=== PATIENT | male | born 1955 | race Caucasian/White ===

== ENCOUNTER 2020-11-21 14:57 | Observation (INO) ==
--- NOTE | 2020-11-21 15:17 | Emergency Department Note ---
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 Patient states that he has some left-sided pain that radiated to his left arm described it is achy in nature. It has improved compared to prior. The patient did have significant nausea was given Zofran but nothing else in route. The patient does have a known history of A. fib and is on anticoagulant medication does follow with Dr. Lamar. The patient denies any fevers or chills. Patient denies any shortness of breath. Patient denies any lower extremity swelling history of blood clots. Patient denies any recent prolonged car or plane travel surgery or procedure. ROS: See HPI for pertinent positives and negatives. A total of 10 systems were re viewed and otherwise negative. Past medical history: See below Surgical history: See below Social history: See below Physical Exam: GENERAL: Wearing a mask and glasses. NAD, non-toxic. EYE EXAM: Normal conjunctiva. PERRL, no anisocoria and EOM's grossly intact w/o pain. NECK: Supple, no nuchal rigidity, no adenopathy, non-tender. No signs of meningismus. LUNGS: Clear to auscultation. Normal chest wall mechanics. Chest: No reproducible chest wall pain. HEART: Irregularly irregular, no MRG. ABDOMEN: Abdomen soft, non-tender, normo-active bowel sounds, no masses, no rebound or guarding. BACK: No CVA TTP. SKIN: No rashes and no bruising. UPPER EXTREMITIES: Upper extremities are grossly normal. LOWER EXTREMITIES: Grossly normal, no edema. NEURO EXAM: A&O x3, cranial nerves II-XII grossly intact, normal speech, moves all 4 extremities on command w/o issue. Differential diagnoses: Cardiac ischemia, aortic dissection, pulmonary embolism, pneumothorax, pneumonia, pericarditis, myocarditis, esophageal rupture, GERD, cholecystitis, pancreatitis, musculoskeletal, as well as other pathologies. Course: Patient was seen and evaluated the bedside. Full history physical exam was performed. EKG interpreted by me Coretta españa, rate of 78, normal QRS, normal axis, no obvious ST changes. Imaging Studies: See below Cardiac monitoring: An order was placed for continuous cardiac monitoring. The monitor shows a rate of 81 with sinus rhythm. 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 The patient did receive aspirin and Zofran in route. The patient did have improvement in symptoms. Patient is a heart score greater than 3 and has moderate risk. After further discussion with the patient the patient is amenable to observation. Patient's EKG does not show any acute obvious ischemic changes and the patient's initial troponin is negative. I did speak the on-call hospitalist Jahaira Thurman and the patient was admitted by Dr. Galicia. Past Med/Surg History Medical History Anemia Atrial fibrillation xarelto and digoxin---follows with Dr. Biggs BPH (benign prostatic hyperplasia) Coronary artery disease Diabetes mellitus, type 2 Hyperlipidemia Hypertension Morbid obesity with BMI of 50.0-59.9, adult On anticoagulant therapy xarelto daily Osteoarthritis Stroke 2010--"minor" no deficits, no neurologist Surgical History [place] [facility] History of colonoscopy History of esophagogastroduodenoscopy (EGD) History of orchiectomy, unilateral left History of shoulder surgery left, removal of benign mass History of tooth extraction Family History (Updated 11/21/20 @ 18:57 by Eliana Thurman PA-C) Aunt Family history of diabetes mellitus Mother , 60s Myocardial infarction Father Myocardial infarction Grandmother (Maternal) Myocardial infarction Brother , age 31 Myocardial infarction Half-brother Other No family history of adverse response to anesthesia Social History Smoking Status: Never smoker Second Hand Exposure: No; Hx Alcohol Use: No Hx Substance Use: No Preferred Language: Slovak Communication Ability: Effective Financial Adviser Required: No Beliefs That Will Affect Care: None Current Living Situation: Spouse Other Information That Helps Us Care for You: No Feels Safe at Home: Yes Safety Concerns: Feels Safe At This Time Assistive Devices: None Allergies Allergies Allergy/AdvReac Type Severity Reaction Status Date / Time ciprofloxacin Allergy Intermediate HIVES Verified 11/21/20 15:59 Sulfa (Sulfonamide Allergy Intermediate HIVES Verified 11/21/20 15:59 Antibiotics) Home Meds Home Medications Medication Instructions Recorded Confirmed One-A-Day Men's 50 Plus 1 tab PO QAM 11/12/18 11/21/20 Tresiba FlexTouch U-200 80 unit SUBCUT BID 11/12/18 11/21/20 Trulicity 1.5 mg SUBCUT WK 11/12/18 11/21/20 aspirin 81 mg PO HS 11/12/18 11/21/20 atenolol 100 mg PO BID 11/12/18 11/21/20 atorvastatin 20 mg PO QAM 11/12/18 11/21/20 bumetanide 1 mg PO QAM 11/12/18 11/21/20 cyanocobalamin (vitamin B-12) 1,000 mcg PO HS 11/12/18 11/21/20 diclofenac sodium 2 g TOPICAL BID PRN 11/12/18 11/21/20 digoxin 125 mcg PO QAM 11/12/18 11/21/20 finasteride 5 mg PO QAM 11/12/18 11/21/20 magnesium oxide 400 mg PO HS 11/12/18 11/21/20 metformin 1,000 mg PO BIDM 11/12/18 11/21/20 nitroglycerin 0.4 mg SUBLINGUAL UD PRN 11/12/18 11/21/20 omeprazole 10 mg PO BID 11/12/18 11/21/20 rivaroxaban 20 mg PO HS 11/12/18 11/21/20 spironolactone 25 mg PO QAM 11/12/18 11/21/20 terazosin 2 mg PO HS 11/12/18 11/21/20 terazosin 5 mg PO HS 11/12/18 11/21/20 duloxetine 60 mg PO DAILY 11/01/20 11/21/20 lisinopril 10 mg PO HS 11/01/20 11/21/20 pregabalin 75 mg PO BID 11/01/20 11/21/20 tramadol 100 mg PO Q6 PRN 11/01/20 11/21/20 albuterol sulfate 2 puff INHALATION QID PRN 11/21/20 11/21/20 coenzyme Q10 [Co Q-10] 100 mg PO DAILY 11/21/20 11/21/20 ferrous gluconate 240 mg PO DAILY 11/21/20 11/21/20 ketoconazole 1 applic TOPICAL BID 11/21/20 11/21/20 loratadine 10 mg PO DAILY 11/21/20 11/21/20 lorazepam 1 mg PO DIRECTED PRN 11/21/20 11/21/20 polyethylene glycol 3350 [Miralax] 17 g PO DAILY 11/21/20 11/21/20 Results & Data (ED) Vital Signs Vital Signs - 24 hr 11/21/20 15:10 11/21/20 15:30 11/21/20 15:31 Temperature 36.7 C Temperature Source Oral Pulse Rate 72 63 72 Pulse Rate from SpO2 Sensor 74 69 Pulse Rhythm Irregular Respiratory Rate 18 21 Blood Pressure 131/61 105/61 Blood Pressure Mean 84 75 Pulse Oximetry 92 93 93 Oxygen Delivery Method Room Air Room Air Sepsis Recent Fever Within 48 Hours No Sepsis New/Unexplained Change in Mental Status No Sepsis Action Taken by Nursing No Action Required 11/21/20 16:01 11/21/20 16:31 11/21/20 17:01 Temperature Temperature Source Pulse Rate 71 66 59 L Pulse Rate from SpO2 Sensor 72 67 61 Pulse Rhythm Respiratory Rate 15 15 20 Blood Pressure 103/56 L 106/53 L 94/67 L Blood Pressure Mean 71 70 76 Pulse Oximetry 95 93 96 Oxygen Delivery Method Sepsis Recent Fever Within 48 Hours Sepsis New/Unexplained Change in Mental Status Sepsis Action Taken by Nursing 11/21/20 17:32 11/21/20 18:01 Temperature Temperature Source Pulse Rate 64 58 L Pulse Rate from SpO2 Sensor 66 55 L Pulse Rhythm Respiratory Rate 17 21 Blood Pressure 127/45 L 116/67 Blood Pressure Mean 72 83 Pulse Oximetry 97 97 Oxygen Delivery Method Sepsis Recent Fever Within 48 Hours Sepsis New/Unexplained Change in Mental Status Sepsis Action Taken by [facility] Medications Current Medication List: was personally reviewed by me Laboratory Data Attestation: I reviewed the patient's lab results. Result diagrams: 11/21/20 14:45 11/21/20 14:45 Lab Results 11/21/20 11/21/20 11/21/20 Range/Units 14:45 14:45 14:45 WBC 9.33 (4.8-10.8) K/uL RBC 4.20 L (4.7-6.1) M/uL Hgb 11.8 L (14.0-18.0) g/dL Hct 36.6 L (42-52) % MCV 87.1 (80-100) fL MCH 28.1 (25-34) pg MCHC 32.2 (32-36) g/dL RDW Std Deviation 44.3 (36.4-46.3) fL RDW Coeff of Denny 13.8 (11.5-14.5) % Plt Count 302 (130-400) K/uL MPV 12.1 H (7.4-10.4) fL Immature Gran % (Auto) 0.1 % Neut % (Auto) 62.9 % Lymph % (Auto) 27.5 % Charles % (Auto) 8.0 % Eos % (Auto) 1.3 % Baso % (Auto) 0.2 % Neut # (Auto) 5.86 (1.4-6.5) K/uL Lymph # (Auto) 2.57 (1.2-3.4) K/uL Charles # (Auto) 0.75 H (0.11-0.59) K/uL Eos # (Auto) 0.12 (0-0.5) K/uL Baso # (Auto) 0.02 (0-0.2) K/uL Immature Gran # (Auto) 0.01 (0.00-0.02) K/uL APTT 31.6 H (21.0-31.0) Seconds PTT Ratio 1.2 D-Dimer (0-500) ug/L FEU Sodium 137 (136-145) mmol/L Potassium 4.3 (3.5-5.1) mmol/L Chloride 103 (98-107) mmol/L Carbon Dioxide 26 (21-32) mmol/L Anion Gap 7.0 (3-11) BUN 21 H (7-18) mg/dl Creatinine 1.67 H (0.6-1.4) mg/dl Est Cr Clr Drug Dosing 71.8 ml/min Est GFR ( Amer) 49.0 ml/min Est GFR (Non-Af Amer) 42.3 ml/min BUN/Creatinine Ratio 12.5 (10-20) Glucose 108 H (70-99) mg/dl Calcium 9.2 (8.5-10.1) mg/dl Total Bilirubin 0.4 (0.2-1) mg/dl AST 19 (15-37) U/L ALT 25 (12-78) U/L Alkaline Phosphatase 100 (45-117) U/L Troponin I < 0.015 (0-0.045) ng/ml NT-Pro-B Natriuret Pep 906 H (0-900) pg/ml Total Protein 7.4 (6.4-8.2) gm/dl Albumin 3.5 (3.4-5.0) gm/dl Globulin 3.9 (2.5-4.0) gm/dl Albumin/Globulin Ratio 0.9 (0.9-2) Lipase 120 (73-393) U/L COVID-19 Eval Order SARS-CoV-2 (PCR) (Negative) 11/21/20 11/21/20 11/21/20 Range/Units 14:45 18:00 18:00 WBC (4.8-10.8) K/uL RBC (4.7-6.1) M/uL Hgb (14.0-18.0) g/dL Hct (42-52) % MCV (80-100) fL MCH (25-34) pg MCHC (32-36) g/dL RDW Std Deviation (36.4-46.3) fL RDW Coeff of Denny (11.5-14.5) % Plt Count (130-400) K/uL MPV (7.4-10.4) fL Immature Gran % (Auto) % Neut % (Auto) % Lymph % (Auto) % Charles % (Auto) % Eos % (Auto) % Baso % (Auto) % Neut # (Auto) (1.4-6.5) K/uL Lymph # (Auto) (1.2-3.4) K/uL Charles # (Auto) (0.11-0.59) K/uL Eos # (Auto) (0-0.5) K/uL Baso # (Auto) (0-0.2) K/uL Immature Gran # (Auto) (0.00-0.02) K/uL APTT (21.0-31.0) Seconds PTT Ratio D-Dimer 380 (0-500) ug/L FEU Sodium (136-145) mmol/L Potassium (3.5-5.1) mmol/L Chloride (98-107) mmol/L Carbon Dioxide (21-32) mmol/L Anion Gap (3-11) BUN (7-18) mg/dl Creatinine (0.6-1.4) mg/dl Est Cr Clr Drug Dosing ml/min Est GFR ( Amer) ml/min Est GFR (Non-Af Amer) ml/min BUN/Creatinine Ratio (10-20) Glucose (70-99) mg/dl Calcium (8.5-10.1) mg/dl Total Bilirubin (0.2-1) mg/dl AST (15-37) U/L ALT (12-78) U/L Alkaline Phosphatase (45-117) U/L Troponin I (0-0.045) ng/ml NT-Pro-B Natriuret Pep (0-900) pg/ml Total Protein (6.4-8.2) gm/dl Albumin (3.4-5.0) gm/dl Globulin (2.5-4.0) gm/dl Albumin/Globulin Ratio (0.9-2) Lipase (73-393) U/L COVID-19 Eval Order Covid19 at [facility] SARS-CoV-2 (PCR) NEGATIVE (Negative) Administered Medications Nitroglycerin (Nitroglycerin Sl 0.4 Mg/Tab Tab) 0.4 mg SL UD PRN PRN Reason: Chest Pain Stop: 12/21/20 18:06 Last Admin: 11/21/20 20:35 Dose: 0.4 mg Documented by: [id number] Discontinued Medications Acetaminophen (Acetaminophen 325 Mg Tab) 650 mg PO NOW STA Stop: 11/21/20 17:35 Last Admin: 11/21/20 17:54 Dose: 650 mg Documented by: [id number] Nitroglycerin (Nitroglycerin Sl 0.4 Mg/Tab Tab) 0.4 mg SL NOW STA Stop: 11/21/20 17:35 Last Admin: 11/21/20 19:42 Dose: Not Given Documented by: [id number] Imaging Data Radiologist's Impression: Chest X-Ray 11/21/20 15:30 XR chest 1V portable HISTORY: Atypical Chest Pain COMPARISON: Chest 09/04/2015. FINDINGS: The cardiac silhouette remains mildly enlarged. No pleural effusions. No pneumothorax. No new focal lung consolidations to suggest pneumonia. No evidence for pulmonary edema. Mild chronic interstitial thickening remains unchanged. IMPRESSION: No significant change compared to the prior study. No acute process. ACT 112: Negative or not required by law. Electronically signed by: José Marshall M.D. 11/21/2020 3:48 PM Discharge Plan Visit Data Chief Complaint: Chest Pain ED Provider: Musa Stone Discharge Problem: Atypical chest pain, Atrial fibrillation Patient Disposition: Admitted As Inpatient Discharge Instructions Interventions: ED Discharge Assessment Last Done: 11/21/20 20:57 Discharge Problem: Atrial fibrillation Qualifiers: Atrial fibrillation type: unspecified Qualified Code(s): I48.91 - Unspecified atrial fibrillation
[2020-11-21 15:37] LABS: Basophils # (auto) 0.02 K/uL (0-0.2); Basophils % (auto) 0.2 %; Eosinophils # (auto) 0.12 K/uL (0-0.5); Eosinophils % (auto) 1.3 %; Hematocrit (blood only) 36.6 % (42-52); Hemoglobin 11.8 g/dL (14.0-18.0); Immature Granulocytes # (auto) 0.01 K/uL (0.00-0.02); Immature Granulocytes % (auto) 0.1 %; Lymphocytes # (auto) 2.57 K/uL (1.2-3.4); Lymphocytes % (auto) 27.5 %; Mean Corpuscular Hemoglobin 28.1 pg (25-34); Mean Corpuscular Hgb Conc 32.2 g/dL (32-36); Mean Corpuscular Volume 87.1 fL (80-100); Mean Platelet Volume 12.1 fL (7.4-10.4); Monocytes # (auto) 0.75 K/uL (0.11-0.59); Neutrophils # (auto) 5.86 K/uL (1.4-6.5); Neutrophils % (auto) 62.9 %; Platelet Count 302 K/uL (130-400); RDW Coefficient of Variation 13.8 % (11.5-14.5); RDW Standard Deviation 44.3 fL (36.4-46.3); White Blood Count 9.33 K/uL (4.8-10.8)
[2020-11-21 15:48] LABS: Alanine Aminotransferase 25 U/L (12-78); Albumin Level 3.5 gm/dl (3.4-5.0); Aspartate Aminotransferase 19 U/L (15-37); BUN Creatinine Ratio 12.5 (10-20); Blood Urea Nitrogen 21 mg/dl (7-18); Calcium 9.2 mg/dl (8.5-10.1); Carbon Dioxide 26 mmol/L (21-32); Chloride 103 mmol/L (98-107); Creatinine Clr Calc Pharmacy 71.8 ml/min; Est GFR (Non-African American) 42.3 ml/min; Glucose 108 mg/dl (70-99); Potassium 4.3 mmol/L (3.5-5.1); Sodium 137 mmol/L (136-145)
--- NOTE | 2020-11-21 15:50 | XRay Report ---
XR chest 1V portable HISTORY: Atypical Chest Pain COMPARISON: Chest 09/04/2015. FINDINGS: The cardiac silhouette remains mildly enlarged. No pleural effusions. No pneumothorax. No n ew focal lung consolidations to suggest pneumonia. No evidence for pulmonary edema. Mild chronic inte rstitial thickening remains unchanged. IMPRESSION: No significant change compared to the prior study. No acute process. ACT 112: Negative or not required by law. Electronically signed by: José Marshall M.D. 11/21/2020 3:48 PM
[2020-11-21 15:54] LABS: Partial Thromboplastin Ratio 1.2; Partial Thromboplastin Time 31.6 Seconds (21.0-31.0)
[2020-11-21 15:56] LABS: Lipase 120 U/L (73-393)
[2020-11-21 15:59] LABS: Albumin Globulin Ratio 0.9 (0.9-2); Alkaline Phosphatase 100 U/L (45-117); Bilirubin,Total 0.4 mg/dl (0.2-1); Globulin 3.9 gm/dl (2.5-4.0); Total Protein 7.4 gm/dl (6.4-8.2); Troponin I < 0.015 ng/ml (0-0.045)
[2020-11-21] MEDS ORDERED: ACETAMINOPHEN 325 MG TAB PO STA (17:34)
[2020-11-21] MEDS ORDERED: NITROGLYCERIN SL 0.4 MG/TAB TAB SL STA (17:34)
--- NOTE | 2020-11-21 17:51 | Electrocardiogram Report ---
Test Reason : Blood Pressure : / mmHG Vent. Rate : 078 BPM Atrial Rate : 111 BPM P-R Int : 000 ms QRS Dur : 108 ms QT Int : 366 ms P-R-T Axes : 000 064 049 degrees QTc Int : 417 ms Atrial fibrillation Abnormal ECG When compared with ECG of 01-NOV-2020 15:38, No significant change was found Confirmed by Mendel Mccullough ([id number]) on 11/21/2020 5:51:07 PM Referred By: Confirmed By:Denys Mccullough
[2020-11-21] MEDS ORDERED: POLYETHYLENE (MIRALAX) 17 GM PACK PO PRN (18:07)
[2020-11-21] MEDS ORDERED: NITROGLYCERIN SL 0.4 MG/TAB TAB SL PRN ×2 (18:07→21:21)
[2020-11-21] MEDS ORDERED: MAGNESIUM HYDROXIDE SUSP 30 ML UDC PO PRN (18:07)
[2020-11-21] MEDS ORDERED: ALUMINUM/MAGNESIUM SUSP 30 ML UDC PO PRN (18:07)
[2020-11-21] MEDS ORDERED: ONDANSETRON INJ 2 MG/ML 2 ML VIAL IV PRN (18:07)
[2020-11-21] MEDS ORDERED: ACETAMINOPHEN 325 MG TAB PO PRN (18:07)
[2020-11-21 18:34] LABS: D Dimer 380 ug/L FEU (0-500)
[2020-11-21 18:55] LABS: NT Pro B Type Natriuretic Pept 906 pg/ml (0-900)
--- NOTE | 2020-11-21 19:01 | History & Physical Report ---
Date of Service November 21, 2020 Assessment & Plan (1) Chest pain: Currently chest pain free. EKG without significant changes at present. Initial troponin negative. However, pt with strong family history of cardiac disease and multiple risk factors so will admit for observation and additional work-up. - Monitor on telemetry - Trend troponin - Consult cardiology - ECHO in AM - NPO after midnight in case additional work-up needed in AM (2) Diabetes mellitus, type 2: Insulin-requiring. Last A1c in October was 6.6. - Holding home meds - Will use sliding scale Novolog while admitted - Accuchecks ACHS - Diabetic diet (3) Atrial fibrillation: Per patient, this has become more persistent over the past few years. He is on chronic anticoagulation and follows with cardiology yearly - Continue Xarelto - Check digoxin level in AM - Continue Atenolol and digoxin (4) CKD (chronic kidney disease): Creatinine appears stable from a month ago - Follow labs (5) Hypertension: BP at present running slightly low - Continue home meds with holds (6) Hyperlipidemia: Lipid panel done last week as outpatient - total cholesterol 110, HDL 32, LDL 56 - Continue statin as taking at home (7) Anemia: Stable H&H from one month ago although still slightly low. No evidence of active blood loss at present. - Continue ferrous sulfate Pt seen and reviewed with attending physician, Dr. Galicia. Plan of care discussed and as outlined above. Code Status: Full Code Laurel Thurman PA-C History of Present Illness Chief Complaint: Chest pain and dizziness Primary Care Provider: Reid Garvey MD This is a 64 y/o male with a PMH of chronic atrial fibrillation on anticoagulation, insulin-requiring DM2, HTN, GERD, obesity, CKD, and dyslipidemia who presents to the ED via EMS with chest pain and dizziness. 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 The pain quickly resolved but the dizziness persisted. He immediately sat down because he felt like he was going to pass out. His co-worker noted that he was very pale and diaphoretic. While sitting there, the chest pain returned so a colleague called 911. This chest pain radiated to his left shoulder and neck and he noted palpitations consistent with prior episodes of atrial fibrillation. On the ride to the ED, he became nauseated and was given a medication for this with improvement. He was also given aspirin en route. After arrival in the ED and some rest, he notes the chest pain has resolved although he notes residual chest heaviness. In total, the symptoms lasted about 30-45 minutes. He also notes a right sided headache today, which is different than his usual sinus headaches. He denies fevers, chills, vomiting, peripheral edema, or diplopia. He has noted progressive fatigue over the past year for which he was recently started on an iron supplement after outpatient labs showed a mild anemia. He does not think that this has helped the fatigue. He denies similar chest pain previously. Last cardiac cath was in 2013 and noted normal coronary arteries. Last ECHO also in 2013. Pt follows with Dr. Biggs, his coding assistant, yearly with last visit in Feb 2020. Allergies Allergy/AdvReac Type Severity Reaction Status Date / Time ciprofloxacin Allergy Intermediate HIVES Verified 11/21/20 15:59 Sulfa (Sulfonamide Allergy Intermediate HIVES Verified 11/21/20 15:59 Antibiotics) Home Medications Medication Instructions Recorded Confirmed Type One-A-Day Men's 50 Plus 1 tab PO QAM 11/12/18 11/21/20 History Tresiba FlexTouch U-200 80 unit SUBCUT BID 11/12/18 11/21/20 History Trulicity 1.5 mg SUBCUT WK 11/12/18 11/21/20 History aspirin 81 mg PO HS 11/12/18 11/21/20 History atenolol 100 mg PO BID 11/12/18 11/21/20 History atorvastatin 20 mg PO QAM 11/12/18 11/21/20 History bumetanide 1 mg PO QAM 11/12/18 11/21/20 History cyanocobalamin (vitamin B-12) 1,000 mcg PO HS 11/12/18 11/21/20 History diclofenac sodium 2 g TOPICAL BID PRN 11/12/18 11/21/20 History digoxin 125 mcg PO QAM 11/12/18 11/21/20 History finasteride 5 mg PO QAM 11/12/18 11/21/20 History magnesium oxide 400 mg PO HS 11/12/18 11/21/20 History metformin 1,000 mg PO BIDM 11/12/18 11/21/20 History nitroglycerin 0.4 mg SUBLINGUAL UD PRN 11/12/18 11/21/20 History omeprazole 10 mg PO BID 11/12/18 11/21/20 History rivaroxaban 20 mg PO HS 11/12/18 11/21/20 History spironolactone 25 mg PO QAM 11/12/18 11/21/20 History terazosin 2 mg PO HS 11/12/18 11/21/20 History terazosin 5 mg PO HS 11/12/18 11/21/20 History duloxetine 60 mg PO DAILY 11/01/20 11/21/20 History lisinopril 10 mg PO HS 11/01/20 11/21/20 History pregabalin 75 mg PO BID 11/01/20 11/21/20 History tramadol 100 mg PO Q6 PRN 11/01/20 11/21/20 History albuterol sulfate 2 puff INHALATION QID PRN 11/21/20 11/21/20 History coenzyme Q10 [Co Q-10] 100 mg PO DAILY 11/21/20 11/21/20 History ferrous gluconate 240 mg PO DAILY 11/21/20 11/21/20 History ketoconazole 1 applic TOPICAL BID 11/21/20 11/21/20 History loratadine 10 mg PO DAILY 11/21/20 11/21/20 History lorazepam 1 mg PO DIRECTED PRN 11/21/20 11/21/20 History polyethylene glycol 3350 [Miralax] 17 g PO DAILY 11/21/20 11/21/20 History Past Med/Surg History Medical History Anemia Atrial fibrillation xarelto and digoxin---follows with Dr. Biggs BPH (benign prostatic hyperplasia) Coronary artery disease Diabetes mellitus, type 2 Hyperlipidemia Hypertension Morbid obesity with BMI of 50.0-59.9, adult On anticoagulant therapy xarelto daily Osteoarthritis Stroke 2010--"minor" no deficits, no neurologist Surgical History History of cardiac cath 2012 @ [facility] [place]--no stents History of colonoscopy History of esophagogastroduodenoscopy (EGD) History of orchiectomy, unilateral left History of shoulder surgery left, removal of benign mass History of tooth extraction Family History (Updated 11/21/20 @ 18:57 by Eliana Thurman PA-C) Aunt Family history of diabetes mellitus Mother , 60s Myocardial infarction Father Myocardial infarction Grandmother (Maternal) Myocardial infarction Brother , age 31 Myocardial infarction Half-brother Other No family history of adverse response to anesthesia Social History Smoking Status: Never smoker Second Hand Exposure: No; Hx Alcohol Use: No Hx Substance Use: No Preferred Language: Khmer Communication Ability: Effective Radio Operator Required: No Beliefs That Will Affect Care: None Current Living Situation: Spouse Other Information That Helps Us Care for You: No Feels Safe at Home: Yes Safety Concerns: Feels Safe At This Time Assistive Devices: None Review of Systems Review of Systems: All systems reviewed & are unremarkable except as noted in HPI & below Constitutional: + sweats and + fatigue; no fever and no chills Eyes: no diplopia Intermittent blurry vision - has diabetic eye exam yearly in Oct Ear, Nose, Mouth, Throat: no nasal congestion, no sore throat and no dysphagia Respiratory: + dyspnea on exertion; no cough, no chest congestion, no hemoptysis and no wheezing Cardiovascular: as per Subjective / HPI Gastrointestinal: + nausea; no abdominal pain, no vomiting and no diarrhea/loose stools Genitourinary: + dysuria (ongoing issue ) and + flank pain (right x 2 days over the weekend, resolved today) Musculoskeletal: + neck pain; no swelling Integumentary: no rash and no skin ulcer Neurologic: + dizziness and + headache(s); no seizure-like activity, no syncope and no confusion Psychiatric: Notes significant life stresses recently Physical Exam Constitutional: WD/WN, vitals as above no acute distress Eyes: PERRL, conjunctivae normal, anicteric sclerae ENMT: external ear and nose normal, oropharynx normal Neck: trachea midline Respiratory: no respiratory distress and no labored breathing Auscultation: lungs clear to auscultation bilaterally; no rales, no rhonchi and no wheezes Cardiovascular: Rate/Rhythm: regular rate and regular rhythm Heart Sounds: no gallop, no murmur and no cardiac rub Vessels: posterior tibial pulses present and radial pulses present; no carotid bruit Extremities: normal capillary refill and + edema (trace non-pitting pedal edema); no calf tenderness Gastrointestinal (Abdomen): Inspection/Auscultation: normal bowel sounds; abdomen not distended Percussion/Palpation: abdomen soft; abdomen nontender Musculoskeletal: Head/Neck/Chest: normocephalic, head atraumatic and neck supple Skin: no rashes, warm and dry no jaundice Neurologic: moves all extremities; no focal motor deficits and not confused Speech / Cognition: normal speech Psychiatric: A+Ox3, euthymic affect Results & Data Results & Data ([facility]) Vital Signs (Past 12 Hours) Vital Signs Temp Pulse Resp BP Pulse Ox 11/21/20 17:32 64 17 127/45 L 97 11/21/20 17:01 59 L 20 94/67 L 96 11/21/20 16:31 66 15 106/53 L 93 11/21/20 16:01 71 15 103/56 L 95 11/21/20 15:31 72 21 105/61 93 11/21/20 15:30 63 22 93 11/21/20 15:10 36.7 C 72 18 131/61 92 Laboratory Results Laboratory Results - last 24 hr 11/21/20 11/21/20 11/21/20 14:45 14:45 14:45 WBC 9.33 RBC 4.20 L Hgb 11.8 L Hct 36.6 L MCV 87.1 MCH 28.1 MCHC 32.2 RDW Std Deviation 44.3 RDW Coeff of Denny 13.8 Plt Count 302 MPV 12.1 H Immature Gran % (Auto) 0.1 Neut % (Auto) 62.9 Lymph % (Auto) 27.5 [place] % (Auto) 8.0 Eos % (Auto) 1.3 Baso % (Auto) 0.2 Neut # (Auto) 5.86 Lymph # (Auto) 2.57 [place] # (Auto) 0.75 H Eos # (Auto) 0.12 Baso # (Auto) 0.02 Immature Gran # (Auto) 0.01 APTT 31.6 H PTT Ratio 1.2 D-Dimer Sodium 137 Potassium 4.3 Chloride 103 Carbon Dioxide 26 Anion Gap 7.0 BUN 21 H Creatinine 1.67 H Est Cr Clr Drug Dosing 71.8 Est GFR ( Amer) 49.0 Est GFR (Non-Af Amer) 42.3 BUN/Creatinine Ratio 12.5 Glucose 108 H Calcium 9.2 Total Bilirubin 0.4 AST 19 ALT 25 Alkaline Phosphatase 100 Troponin I < 0.015 NT-Pro-B Natriuret Pep 906 H Total Protein 7.4 Albumin 3.5 Globulin 3.9 Albumin/Globulin Ratio 0.9 Lipase 120 COVID-19 Eval Order SARS-CoV-2 (PCR) 11/21/20 11/21/20 11/21/20 14:45 18:00 18:00 WBC RBC Hgb Hct MCV MCH MCHC RDW Std Deviation RDW Coeff of Denny Plt Count MPV Immature Gran % (Auto) Neut % (Auto) Lymph % (Auto) [place] % (Auto) Eos % (Auto) Baso % (Auto) Neut # (Auto) Lymph # (Auto) [place] # (Auto) Eos # (Auto) Baso # (Auto) Immature Gran # (Auto) APTT PTT Ratio D-Dimer 380 Sodium Potassium Chloride Carbon Dioxide Anion Gap BUN Creatinine Est Cr Clr Drug Dosing Est GFR ( Amer) Est GFR (Non-Af Amer) BUN/Creatinine Ratio Glucose Calcium Total Bilirubin AST ALT Alkaline Phosphatase Troponin I NT-Pro-B Natriuret Pep Total Protein Albumin Globulin Albumin/Globulin Ratio Lipase COVID-19 Eval [address] Covid19 [address] [facility] SARS-CoV-2 (PCR) Pending Diagnostic Findings Chest X-ray 11/21/20 - IMPRESSION: No significant change compared to the prior study. No acute process. Medications Administered Discontinued Medications Acetaminophen (Acetaminophen 325 Mg Tab) 650 mg PO NOW STA Stop: 11/21/20 17:35 Last Admin: 11/21/20 17:54 Dose: 650 mg Documented by: [id number] Code Status & VTE Plan VTE Prophylaxis Plan VTE Prophylaxis will be ordered: Yes Supervising Physician Co-Signing Physician Notes pt seen and examined , care co -ordnianted with Apurva Thurman PA-C 64 yo M with morbid obesity , type 2 DM , presented with angina symptoms : chest heaviness with strenuous activity, lifting weight pain resolved after giving Aspirin in ER currently chest pain free inital troponin , ekg wnl admit to PCU to [facility] cardiac work up resting echo , [facility] consulted Lou Galicia MD (1) Chest pain Chest pain type: unspecified Qualified Code(s): R07.9 - Chest pain, uns pecified
[2020-11-21] MEDS ORDERED: traMADol HCL 50 MG TABLET PO PRN (21:21)
[2020-11-21] MEDS ORDERED: ATENOLOL 50 MG TABLET PO SCH (21:21)
[2020-11-21] MEDS ORDERED: TERAZOSIN HCL 1 MG CAP PO SCH (21:21)
[2020-11-21] MEDS ORDERED: GLUCOSE 10 TABS/TUBE PO PRN (21:21)
[2020-11-21] MEDS ORDERED: DEXTROSE 50% 50 ML SYRINGE IV PRN (21:21)
[2020-11-21] MEDS ORDERED: CYANOCOBALAMIN 500 MCG TABLET (VITAMIN B-12) PO SCH (21:21)
[2020-11-21] MEDS ORDERED: RIVAROXABAN 20 MG TAB PO SCH (21:21)
[2020-11-21] MEDS ORDERED: DICLOFENAC SOD 1% GEL 100 GM TUBE EXT PRN (21:21)
[2020-11-21] MEDS ORDERED: ASPIRIN 81 MG ECTAB PO SCH (21:21)
[2020-11-21] MEDS ORDERED: TERAZOSIN HCL 5 MG CAP PO SCH (21:21)
[2020-11-21] MEDS ORDERED: GLUCOSE 40% GEL 15 GM TUBE PO PRN (21:21)
[2020-11-21] MEDS ORDERED: GLUCAGON FOR INJ 1 MG VIAL SQ PRN (21:21)
[2020-11-21] MEDS ORDERED: ATIVAN 1MG HOMEPACK PO PRN (21:21)
[2020-11-21] MEDS ORDERED: CARBOHYDRATES FOR HYPOGLYCEMIA PO PRN (21:21)
[2020-11-21] MEDS ORDERED: lisinopril 10 MG TAB PO SCH (21:21)
[2020-11-21] MEDS ORDERED: MAGNESIUM OXIDE 400 MG TAB PO SCH (21:21)
[2020-11-21] MEDS ORDERED: ALBUTEROL HFA 8 GM INHALER INH PRN (21:21)
[2020-11-21] MEDS: INSULIN ASPART 100 UNITS/ML 3 ML PEN SC SCH (22:40)
[2020-11-21] MEDS: PANTOprazole 40 MG TAB PO SCH (22:41)
[2020-11-21] MEDS: PREGABALIN 75 MG CAP PO SCH (22:44)
[2020-11-22] MEDS: INSULIN ASPART 100 UNITS/ML 3 ML PEN SC SCH ×2 (01:08→06:31)
[2020-11-22 07:06] LABS: Hematocrit (blood only) 34.6 % (42-52); Hemoglobin 10.9 g/dL (14.0-18.0); Mean Corpuscular Hemoglobin 27.9 pg (25-34); Mean Corpuscular Hgb Conc 31.5 g/dL (32-36); Mean Corpuscular Volume 88.7 fL (80-100); Mean Platelet Volume 11.6 fL (7.4-10.4); Platelet Count 259 K/uL (130-400); RDW Standard Deviation 45.9 fL (36.4-46.3); White Blood Count 6.46 K/uL (4.8-10.8)
[2020-11-22 07:44] LABS: BUN Creatinine Ratio 14.8 (10-20); Blood Urea Nitrogen 21 mg/dl (7-18); Calcium 8.9 mg/dl (8.5-10.1); Carbon Dioxide 31 mmol/L (21-32); Chloride 104 mmol/L (98-107); Creatinine Clr Calc Pharmacy 83.2 ml/min; Est GFR (African American) 58.6 ml/min; Est GFR (Non-African American) 50.6 ml/min; Glucose 107 mg/dl (70-99); Potassium 4.1 mmol/L (3.5-5.1); Sodium 138 mmol/L (136-145)
[2020-11-22 07:49] LABS: Troponin I < 0.015 ng/ml (0-0.045)
--- NOTE | 2020-11-22 07:51 | Cardiology Consultation ---
Date of Consultation November 22, 2020 Assessment & Plan (1) Chest pain: EKG negative x2 yesterday and last evening. Serial troponin I negative. Although the patient's symptoms are certainly concerning, I think it was a good idea for him to come in for further observation, I think the work-up thus far is very reassuring. Of note, he was performing a physical task that he described to me as being significantly more physically demanding than what he typically performs, and it was performed in excess of heat and humidity. He notes a lot of stressors at work. An echocardiogram was performed with grossly normal resting wall motion, having received ultrasound contrast to delineate the end ocardial border. At present, recommend ongoing medication therapy including his current treatment with the beta-nghia atenolol and atorvastatin. Based on his negative cardiac enzymes, I do not think he needs repeat coronary angiography at the present time, I am not certain that a pharmacologic stress test with echocardiographic or myocardial perfusion imaging would be very helpful in regards to further risk stratification due to anticipated technical limitations from his atrial fibrillation and body habitus. I am going to advance his diet, and have him ambulate in the hallway to see how he feels. If he has recurrence of symptoms, will reassess. (2) Atrial fibrillation: Continue rate control with atenolol and digoxin. Continue Xarelto for stroke prophylaxis. (3) Hepatic steatosis: Patient's most recent LDL cholesterol is drawn on 11/19/2020 as an outpatient was excellent at 56 mg/dL, continue present treatment with atorvastatin 20 mg daily. (4) Anemia: Hemoglobin is 10. He notes chronic easy fatigability. Recent iron studies performed as an outpatient a month ago were within normal limits. Recommend repeat iron studies. History of Present Illness Attending Physician: Lou Galicia MD History of Present Illness Mr Carson is a 64-year-old male seen in cardiology consultation per the request of Dr. Alvarado for the evaluation of dizziness and chest discomfort. The patient is well-known to the undersigned as I have followed him as an outpatient for several years. Yesterday, it was extremely hot and humid outside. 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 He states that he has been under a lot of stress at work due to lack of employees. He typically performs office tasks, and does not do much of the labor anymore, but yesterday due to a shortage and help, he was changing a tire, and while lifting a tire in the evening humidity of the garage, he had onset of acute dizziness followed by chest pressure and diaphoresis. His symptoms improved with rest initially, but then persisted to some degree. He therefore presented to the emergency department. EKG is negative for acute ischemic changes x2, and troponin I has been undetectable x3 measurements. At present, he is resting in bed, and feels well. Telemetry reveals rate controlled atrial fibrillation in the 50s as per his typical baseline. His past cardiac history is notable for morbid obesity, most recent outpatient weight 374 pounds, BMI 51 kg/m. He has a history of chronic (permanent) rate controlled atrial fibrillation, diastolic dysfunction, hypertension, dyslipidemia, and hepatic steatosis. Due to previous concerns of exertional dyspnea, he underwent cardiac catheterization at [facility] [place] in 2013 with angiographically normal coronary arteries. Allergies Allergy/AdvReac Type Severity Reaction Status Date / Time ciprofloxacin Allergy Intermediate HIVES Verified 11/21/20 15:59 Sulfa (Sulfonamide Allergy Intermediate HIVES Verified 11/21/20 15:59 Antibiotics) Home Medications Medication Instructions Recorded Confirmed Type One-A-Day Men's 50 Plus 1 tab PO QAM 11/12/18 11/21/20 History Tresiba FlexTouch U-200 80 unit SUBCUT BID 11/12/18 11/21/20 History Trulicity 1.5 mg SUBCUT WK 11/12/18 11/21/20 History aspirin 81 mg PO HS 11/12/18 11/21/20 History atenolol 100 mg PO BID 11/12/18 11/21/20 History atorvastatin 20 mg PO QAM 11/12/18 11/21/20 History bumetanide 1 mg PO QAM 11/12/18 11/21/20 History cyanocobalamin (vitamin B-12) 1,000 mcg PO HS 11/12/18 11/21/20 History diclofenac sodium 2 g TOPICAL BID PRN 11/12/18 11/21/20 History digoxin 125 mcg PO QAM 11/12/18 11/21/20 History finasteride 5 mg PO QAM 11/12/18 11/21/20 History magnesium oxide 400 mg PO HS 11/12/18 11/21/20 History metformin 1,000 mg PO BIDM 11/12/18 11/21/20 History nitroglycerin 0.4 mg SUBLINGUAL UD PRN 11/12/18 11/21/20 History omeprazole 10 mg PO BID 11/12/18 11/21/20 History rivaroxaban 20 mg PO HS 11/12/18 11/21/20 History spironolactone 25 mg PO QAM 11/12/18 11/21/20 History terazosin 2 mg PO HS 11/12/18 11/21/20 History terazosin 5 mg PO HS 11/12/18 11/21/20 History duloxetine 60 mg PO DAILY 11/01/20 11/21/20 History lisinopril 10 mg PO HS 11/01/20 11/21/20 History pregabalin 75 mg PO BID 11/01/20 11/21/20 History tramadol 100 mg PO Q6 PRN 11/01/20 11/21/20 History albuterol sulfate 2 puff INHALATION QID PRN 11/21/20 11/21/20 History coenzyme Q10 [Co Q-10] 100 mg PO DAILY 11/21/20 11/21/20 History ferrous gluconate 240 mg PO DAILY 11/21/20 11/21/20 History ketoconazole 1 applic TOPICAL BID 11/21/20 11/21/20 History loratadine 10 mg PO DAILY 11/21/20 11/21/20 History lorazepam 1 mg PO DIRECTED PRN 11/21/20 11/21/20 History polyethylene glycol 3350 [Miralax] 17 g PO DAILY 11/21/20 11/21/20 History Patient History Medical History Anemia Atrial fibrillation xarelto and digoxin---follows with Dr. Biggs BPH (benign prostatic hyperplasia) Coronary artery disease Diabetes mellitus, type 2 Hyperlipidemia Hypertension Morbid obesity with BMI of 50.0-59.9, adult On anticoagulant therapy xarelto daily Osteoarthritis Stroke 2010--"minor" no deficits, no neurologist Surgical History History of cardiac cath 2012 @ [facility] [place]--no stents History of colonoscopy History of esophagogastroduodenoscopy (EGD) History of orchiectomy, unilateral left History of shoulder surgery left, removal of benign mass History of tooth extraction Family History Aunt Family history of diabetes mellitus Mother , 60s Myocardial infarction Father Myocardial infarction Grandmother (Maternal) Myocardial infarction Brother , age 31 Myocardial infarction Half-brother Other No family history of adverse response to anesthesia Social History Smoking Status: Never smoker Second Hand Exposure: No; Hx Alcohol Use: No Hx Substance Use: No Preferred Language: Barbadian Communication Ability: Effective National Park 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 Required: No Beliefs That Will Affect Care: None Current Living Situation: Spouse Other Information That Helps Us Care for You: No Feels Safe at Home: Yes Safety Concerns: Feels Safe At This Time Assistive Devices: None Review of Systems Review of Systems: All systems reviewed & are unremarkable except as noted in HPI & below Physical Exam Physical Exam: Temp Pulse Resp BP Pulse Ox 36.7 C 58 L 19 107/66 95 11/22/20 08:22 11/22/20 08:22 11/22/20 08:22 11/22/20 08:22 11/22/20 08:22 Constitutional: WD/WN, vitals as above Respiratory: normal respiratory effort, lungs clear to auscultation Cardiovascular: RRR, no murmur, no edema Gastrointestinal (Abdomen): normal bowel sounds, soft, nontender, no hepatosplenomegaly Neurologic: PERRL, EOMI, accommodation nl, no face palsy, no dysarthria Results & Data ([facility]) Vital Signs (Past 12 Hours) Vital Signs Temp Pulse Pulse Resp BP BP BP 11/22/20 04:45 36.5 C 46 L 16 128/73 11/22/20 02:09 53 L 11/21/20 22:51 36.4 C L 16 11/21/20 22:35 65 115/70 11/21/20 21:18 36.3 C L 52 L 53 L 16 122/73 11/21/20 21:01 36.8 C 59 L 19 121/79 11/21/20 20:31 55 L 17 143/76 H 11/21/20 20:01 58 L 16 138/64 Pulse Ox 11/22/20 04:45 96 11/22/20 02:09 11/21/20 22:51 96 11/21/20 22:35 11/21/20 21:18 97 11/21/20 21:01 96 11/21/20 20:31 97 11/21/20 20:01 96 Laboratory Results Cardiac Enzymes 11/21/20 11/21/20 11/22/20 Range/Units 14:45 22:28 06:48 AST 19 (15-37) U/L Troponin I < 0.015 < 0.015 < 0.015 (0-0.045) ng/ml Coagulation 11/21/20 Range/Units 14:45 APTT 31.6 H (21.0-31.0) Seconds CBC 11/21/20 11/22/20 Range/Units 14:45 06:48 WBC 9.33 6.46 (4.8-10.8) K/uL RBC 4.20 L 3.90 L (4.7-6.1) M/uL Hgb 11.8 L 10.9 L (14.0-18.0) g/dL Hct 36.6 L 34.6 L (42-52) % Plt Count 302 259 (130-400) K/uL Neut # (Auto) 5.86 (1.4-6.5) K/uL Lymph # (Auto) 2.57 (1.2-3.4) K/uL [place] # (Auto) 0.75 H (0.11-0.59) K/uL Eos # (Auto) 0.12 (0-0.5) K/uL Baso # (Auto) 0.02 (0-0.2) K/uL Comprehensive Metabolic Panel 11/21/20 11/22/20 Range/Units 14:45 06:48 Sodium 137 138 (136-145) mmol/L Potassium 4.3 4.1 (3.5-5.1) mmol/L Chloride 103 104 (98-107) mmol/L Carbon Dioxide 26 31 (21-32) mmol/L BUN 21 H 21 H (7-18) mg/dl Creatinine 1.67 H 1.44 H (0.6-1.4) mg/dl Glucose 108 H 107 H (70-99) mg/dl Calcium 9.2 8.9 (8.5-10.1) mg/dl AST 19 (15-37) U/L ALT 25 (12-78) U/L Alkaline Phosphatase 100 (45-117) U/L Total Protein 7.4 (6.4-8.2) gm/dl Albumin 3.5 (3.4-5.0) gm/dl Intake and Output 11/21/20 11/22/20 11/22/20 22:59 06:59 14:59 Intake Total 620 / 620 Output Total 400 / 400 350 / 350 Balance 620 / 220 -400 / 220 -350 / -350 Intake: IV 500 / 500 Right Antecubital 500 / 500 Oral 120 / 120 Output: Urine 400 / 400 350 / 350 Other: Other Intake Source sips Weight 171.3 kg 171.3 kg Weight Measurement Method Built in Bedscale Standing Scale (1) Chest pain Chest pain type: unspecified Qualified Code(s): R07.9 - Chest pain, unspecified
[2020-11-22] MEDS ORDERED: PERFLUTREN LIPID MICROSPHERE (DEFINITY) IV ONE (08:45)
[2020-11-22] MEDS ORDERED: CEROVITE ADV FORMULA TAB PO SCH (09:00)
[2020-11-22] MEDS ORDERED: FERROUS GLUCONATE 324 MG TAB PO SCH (09:00)
[2020-11-22] MEDS ORDERED: POLYETHYLENE (MIRALAX) 17 GM PACK PO SCH (09:00)
[2020-11-22] MEDS ORDERED: ATORVASTATIN 20 MG TAB PO SCH (09:00)
[2020-11-22] MEDS ORDERED: FINASTERIDE 5 MG TAB PO SCH (09:00)
[2020-11-22] MEDS ORDERED: BUMETANIDE 1 MG TAB PO SCH (09:00)
[2020-11-22] MEDS ORDERED: NON-FORMULARY MEDICATION (Coenzyme Q10 [Co Q-10] 100 mg Capsule) PO SCH (09:00)
[2020-11-22] MEDS ORDERED: LORATADINE 10 MG TAB PO SCH (09:00)
[2020-11-22] MEDS ORDERED: SPIRONOLACTONE 25 MG TAB PO SCH (09:00)
[2020-11-22] MEDS ORDERED: DULoxetine HCL 60 MG CAP PO SCH (09:00)
[2020-11-22] MEDS: PANTOprazole 40 MG TAB PO SCH (10:19)
[2020-11-22] MEDS: PREGABALIN 75 MG CAP PO SCH (10:22)
--- NOTE | 2020-11-22 12:13 | Discharge Summary ---
Date of Service November 22, 2020 Admission HPI Per Admitting Provider This is a 64 y/o male with a PMH of chronic atrial fibrillation on anticoagulation, insulin-requiring DM2, HTN, GERD, obesity, CKD, and dyslipidemia who presents to the ED via EMS with chest pain and dizziness. 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 The pain quickly resolved but the dizziness persisted. He immediately sat down because he felt like he was going to pass out. His co-worker noted that he was very pale and diaphoretic. While sitting there, the chest pain returned so a colleague called 911. This chest pain radiated to his left shoulder and neck and he noted palpitations consistent with prior episodes of atrial fibrillation. On the ride to the ED, he became nauseated and was given a medication for this with improvement. He was also given aspirin en route. After arrival in the ED and some rest, he notes the chest pain has resolved although he notes residual chest heaviness. In total, the symptoms lasted about 30-45 minutes. He also notes a right sided headache today, which is different than his usual sinus headaches. He denies fevers, chills, vomiting, peripheral edema, or diplopia. He has noted progressive fatigue over the past year for which he was recently started on an iron supplement after outpatient labs showed a mild anemia. He does not think that this has helped the fatigue. He denies similar chest pain previously. Last cardiac cath was in 2013 and noted normal coronary arteries. Last ECHO also in 2013. Pt follows with Dr. 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 Principal Diagnosis Atypical chest pain Type 2 diabetes, Chronic A. fib Family history of premature coronary artery disease Discharge Exam Constitutional WD/WN, vitals as above no acute distress Eyes PERRL, conjunctivae normal, anicteric sclerae ENMT external ear and nose normal, oropharynx normal Neck trachea midline Respiratory no respiratory distress and no labored breathing Auscultation: lungs clear to auscultation bilaterally; no rales, no rhonchi and no wheezes Cardiovascular Rate/Rhythm: regular rate and regular rhythm Heart Sounds: no gallop, no murmur and no cardiac rub Vessels: posterior tibial pulses present and radial pulses present; no carotid bruit Extremities: normal capillary refill and + edema (trace non-pitting pedal edema); no calf tenderness Gastrointestinal (Abdomen) Inspection/Auscultation: normal bowel sounds; abdomen not distended Percussion/Palpation: abdomen soft; abdomen nontender Musculoskeletal Head/Neck/Chest: normocephalic, head atraumatic and neck supple Skin no rashes, warm and dry no jaundice Neurologic moves all extremities; no focal motor deficits and not confused Speech / Cognition: normal speech Psychiatric A+Ox3, euthymic affect Discharge Data Allergies Allergy/AdvReac Type Severity Reaction Status Date / Time ciprofloxacin Allergy Intermediate HIVES Verified 11/21/20 15:59 Sulfa (Sulfonamide Allergy Intermediate HIVES Verified 11/21/20 15:59 Antibiotics) Consultations 11/21/20 18:07 Consult Cardiology Routine 11/21/20 18:16 ED Decision to Admit Stat Hospital Course (1) Chest pain: Currently chest pain free. EKG without significant changes at present. Initial troponin negative. However, pt with strong family history of cardiac disease and multiple risk factors so will admit for observation and additional work-up. - tropnin negative no recurrence of chest pain ECHO :limited view , no wall motion abnormality appreciate input from cardiology stable to be discharged home pt is asked to avoid sternious work /heavy weight lift under excessive heat / - (2) Diabetes mellitus, type 2: Insulin-requiring. Last A1c in October was 6.6. - Holding home meds - Will use sliding scale Novolog while admitted - Accuchecks ACHS - Diabetic diet (3) Atrial fibrillation: Per patient, this has become more persistent over the past few years. He is on chronic anticoagulation and follows with cardiology yearly - Continue Xarelto - - Continue Atenolol and digoxin (4) CKD (chronic kidney disease): Creatinine appears stable from a month ago - (5) Hypertension: BP at present running slightly low - Continue home meds (6) Hyperlipidemia: Lipid panel done last week as outpatient - total cholesterol 110, HDL 32, LDL 56 - Continue statin as taking at home (7) Anemia: Stable H&H from one month ago although still slightly low. No evidence of active blood loss at present. - Continue ferrous sulfate iron study -with in normal limit pt is discharged home in stable condition Total Time Total Time Spent Total Time Spent (In Minutes): 30 mins Discharge Plan Discharge Items Patient Disposition: Home - Self-Care Reason For Visit: CHEST PAIN Discharge Diagnosis: Atypical chest pain Type 2 diabetes, Chronic A. fib Family history of premature coronary artery disease Activity: As commented below Activity Comment: As tolerated, please avoid strenuous activity in excess heat Lifting: No more than 10 pounds Non-emergency contact: Primary Care Provider Call non-emergency contact if: you have any medication questions Follow-up/Referrals: Aries Royal [Physician Automatic Teller Machine Servicer] - (Date & Time 12/09/2020 3:00 PM Provider Aries Royal PA-C Department Cardiology, [facility] ) Reid Garvey MD [Primary Care Provider] - (Date & Time 11/29/2020 11:00 AM Provider Reid Garvey III, MD Department [facility] ) Diet: Heart Healthy Addtl Attending Provider Instructions: Please take all medications as instructed on discharge list below. It is recommended that you follow-up with your primary care physician within 1-2 weeks of hospital discharge to ensure you are still doing well. Please call if you have any questions or problems. You can reach a [facility] hospitalist on duty at [facility] 24 hours a day by calling [phone] Do not take group of medications belonging to NSAIDs group -can cause worsening of your kidney function. List Of these medications includes but not limited to: Aspirin Diclofenac Ibuprofen, Motrin, Advil Toradol,ketorolac Naproxen, Aleve, Naprosyn You can take Tylenol as needed for pain or fever When buying [id number] pain medications please consult with pharmacy if you are not sure regarding ingredients, as a lot of the pain medications have combination of NSAIDs and Tylenol. Pending Studies at Discharge: No Stand-Alone Forms: My [facility], Smoking Cessation Medications and DC Order Prescriptions: Continued terazosin 5 mg Capsule 5 mg PO HS RF: 0 atorvastatin 20 mg Tablet 20 mg PO QAM RF: 0 atenolol 100 mg Tablet 100 mg PO BID RF: 0 cyanocobalamin (vitamin B-12) 1,000 mcg Tablet 1,000 mcg PO HS RF: 0 aspirin 81 mg Tablet,Delayed Release (Dr/Ec) 81 mg PO HS RF: 0 spironolactone 25 mg Tablet 25 mg PO QAM RF: 0 omeprazole 10 mg Capsule,Delayed Release(Dr/Ec) 10 mg PO BID RF: 0 terazosin 2 mg Capsule 2 mg PO HS RF: 0 metformin 1,000 mg Tablet 1,000 mg PO BIDM RF: 0 nitroglycerin 0.4 mg Tablet, Sublingual 0.4 mg sublingual UD PRN (Reason: Angina) RF: 0 bumetanide 1 mg Tablet 1 mg PO QAM RF: 0 digoxin 125 mcg Tablet 125 mcg PO QAM RF: 0 finasteride 5 mg Tablet 5 mg PO QAM RF: 0 diclofenac sodium 1 % Gel 2 g TOPICAL BID PRN (Reason: Pain) RF: 0 rivaroxaban 20 mg Tablet 20 mg PO HS RF: 0 One-A-Day Men's 50 Plus 400-20-370 mcg Tablet 1 tab PO QAM RF: 0 Tresiba FlexTouch U-200 200 unit/mL (3 mL) Insulin Pen 80 unit SUBCUT BID RF: 0 Trulicity 1.5 mg/0.5 mL Pen Injector 1.5 mg SUBCUT WK RF: 0 magnesium oxide 400 mg magnesium Tablet 400 mg PO HS RF: 0 ferrous gluconate 240 mg (27 mg iron) Tablet 240 mg PO DAILY RF: 0 lorazepam 1 mg tablet 1 mg PO DIRECTED PRN (Reason: TAKE 1 HR PRIOR TO MRI) RF: 0 albuterol sulfate 90 mcg/actuation Hfa Aerosol Inhaler 2 puff INHALATION QID PRN (Reason: Shortness Of Breath) RF: 0 loratadine 10 mg Tablet 10 mg PO DAILY RF: 0 polyethylene glycol 3350 [Miralax] 17 gram Powder In Packet 17 g PO DAILY RF: 0 ketoconazole 2 % Cream 1 applic TOPICAL BID RF: 0 coenzyme Q10 [Co Q-10] 100 mg Capsule 100 mg PO DAILY RF: 0 pregabalin 75 mg capsule 75 mg PO BID RF: 0 tramadol 50 mg tablet 100 mg PO Q6 PRN (Reason: Pain) RF: 0 lisinopril 10 mg tablet 10 mg PO HS RF: 0 duloxetine 60 mg capsule,delayed release(DR/EC) 60 mg PO DAILY RF: 0 Discharge Orders: Discharge Order (Routine); Ordered 11/22/20 Ordered By: Lou Galicia Admission Data Admit Date/Time: 11/21/20 18:08 Attending Provider: Lou Galicia Admit Provider: Lou Galicia Primary Care Provider: Reid Garvey Other Providers: Alberto Brown ; Dylon Biggs ; Michael Dave ; Raleigh Laughlin ; Juan José Stokes ; Aries Royal ; Adeline Carreon ; Sheeba Ferrell ; Michelle Burkett ; Moises Oro ; Lou Galicia Other Interventions: Discharge Summary Assessment (RN) Last Done: 11/22/20 11:37
[2020-11-22] MEDS ORDERED: DIGOXIN 0.125 MG TAB PO SCH (16:00)
--- NOTE | 2020-11-22 18:25 | Electrocardiogram Report ---
Test Reason : Blood Pressure : / mmHG Vent. Rate : 050 BPM Atrial Rate : 045 BPM P-R Int : 000 ms QRS Dur : 104 ms QT Int : 426 ms P-R-T Axes : 000 057 045 degrees QTc Int : 388 ms Atrial fibrillation with slow ventricular response Abnormal ECG When compared with ECG of 21-NOV-2020 15:09, Vent. rate has decreased BY 28 BPM Confirmed by Mendel Mccullough ([id number]) on 11/22/2020 6:25:00 PM Referred By: REFERRED SELF Confirmed By:Denys Mccullough
[2020-11-22] MEDS ORDERED: ATENOLOL 50 MG TABLET PO SCH (21:00)
== END 2020-11-22 13:22 | disposition home or self-care (01) ==
LOC: EDBD → ED 14:57 → 2S 14:57 → MERGE 14:57 → 2S 20:57